=== PATIENT | male | born 1960 | race African-American/Black ===

== ENCOUNTER 2020-09-18 10:27 | Emergency (ER) | payer MEDICAID ==
[2020-09-18 10:48] VITALS: BP 137/81
[2020-09-18] MEDS ORDERED: OXYCODONE-ACETAMINOPHEN 5-325 MG TABLET PO ONE (11:36)
--- NOTE | 2020-09-18 11:38 | ER Document Report ---
ED Extremity Problem, Lower - General Chief Complaint: Leg Injury Stated Complaint: FALL/LEG INJURY Time Seen by Provider: 09/18/20 11:34 Primary Care Provider: LINDA GUSMAN DO [ACTIVE STAFF] - Follow up as needed Notes: CHIEF COMPLAINT: Fall with hip and leg pain HPI: 59-year-old male mechanical fall yesterday landing on his right side on the hip. Complains of pain to the right hip and right leg was able to get up and weight-bear afterwards with discomfort. Denies hitting his head. Denies upper extremity injuries. Denies abdominal or flank pain. Is not on blood thinners per the patient. ROS: See HPI - all other systems were reviewed and are otherwise negative Constitutional: no fever Eyes: no drainage, no blurred vision ENT: no runny nose, no sore throat Cardiovascular: no chest pain Resp: no SOB, no cough GI: no vomiting, no diarrhea, no abdominal pain : no dysuria Integumentary: no rash Allergy: no hives Musculoskeletal: Positive extremity pain or swelling Neurological: no numbness/tingling, no weakness MEDICATIONS: I agree with the patient medications as charted by the RN. ALLERGIES: I agree with the allergies as charted by the RN. PAST MEDICAL HISTORY/PAST SURGICAL HISTORY: Reviewed and agree as charted by RN. SOCIAL HISTORY: Reviewed and agree as charted by RN. FAMILY HISTORY: No significant familial comorbid conditions directly related to patient complaint EXAM: Reviewed vital signs as charted by RN. CONSTITUTIONAL: Alert and oriented and responds appropriately to questions. Well-appearing; well-nourished HEAD: Normocephalic; atraumatic EYES: PERRL; Conjunctivae clear, sclerae non-icteric ENT: normal nose; no rhinorrhea; moist mucous membranes; pharynx without lesions noted, no uvula edema or deviation, no tonsillar hypertrophy, phonation normal NECK: Supple without meningismus; non-tender; no cervical lymphadenopathy, no masses CARD: RRR; no murmurs, no clicks, no rubs, no gallops; symmetric distal pulses RESP: Normal chest excursion without splinting or tachypnea; breath sounds clear and equal bilaterally; no wheezes, no rhonchi, no rales, pulse oximetry 97% on room air not hypoxic ABD/GI: Normal bowel sounds; non-distended; soft, non-tender, no rebound, no guarding; no palpable organomegaly or masses. BACK: The back appears normal and is non-tender to palpation, there is no CVA tenderness EXT: Normal ROM in all joints; no visible bruising to the right hip or upper thigh. There is tenderness around the right hip and right femur on palpation. Patient is able to fully straighten the right leg at the knee and hip. There is no swelling and bruising at the right knee. There is no lower extremity injury below the knee. Patient is able to straight leg raise with discomfort in the hip region SKIN: Normal color for age and race; warm; dry; good turgor; no acute lesions noted NEURO: Moves all extremities equally; Motor and sensory function intact PSYCH: The patient's mood and manner are appropriate. Grooming and personal hygiene are appropriate. MDM: 59-year-old male mechanical fall onto the right hip region will obtain x- ray for fracture - Related Data Allergies/Adverse Reactions: No Known Allergies Allergy (Unverified 09/18/20 11:34) Past Medical History - Social History Smoking Status: Unknown if Ever Smoked Family History: Reviewed & Not Pertinent Physical Exam - Vital signs Vitals: Temp Pulse Resp BP Pulse Ox 97.8 F 78 18 137/81 H 98 09/18/20 10:44 09/18/20 10:44 09/18/20 10:44 09/18/20 10:44 09/18/20 10:44 Course - Re-evaluation Re-evalutation: 09/18/20 13:27 Patient imaging studies suggest avascular necrosis no fracture. Will place on pain medication refer to orthopedics follow-up 09/18/20 13:59 Patient and indicate they are from [facility]. They are returning there next week for follow-up - Vital Signs Vital signs: Temp Pulse Resp BP Pulse Ox 97.8 F 78 18 137/81 H 98 09/18/20 10:44 09/18/20 10:44 09/18/20 10:44 09/18/20 10:44 09/18/20 10:44 - Laboratory Results Critical Laboratory Results Reviewed: No Critical Results - Radiology Results Critical Radiology Results Reviewed: No Critical Results Discharge - Discharge Clinical Impression: Hip pain, right, Avascular necrosis Fall Qualifiers: Encounter type: initial encounter Qualified Code(s): W19.XXXA - Unspecified fall, initial encounter Condition: Stable Disposition: HOME, SELF-CARE Additional Instructions: Your x-ray and CT imaging today did not show evidence of a fracture in the hip. Use the crutches to help with weightbearing. Pain medication as prescribed no d riving if taking narcotics for pain. Follow-up with your orthopedic physicians in [place] when you return home for reevaluation Prescriptions: Oxycodone HCl/Acetaminophen [Percocet 5-325 mg Tablet] 1 tab PO Q4H PRN #15 tab PRN Reason: Diclofenac Sodium [Voltaren 50 Mg Tablet.] 50 mg PO BID #20 tablet. Referrals: LINDA GUSMAN DO [ACTIVE STAFF] - Follow up as needed
--- NOTE | 2020-09-18 12:07 | RADIOLOGY REPORT (SQ) ---
EXAM DESCRIPTION: FEMUR RIGHT IMAGES COMPLETED DATE/TIME: 09/18/2020 11:56 am REASON FOR STUDY: fall COMPARISON: None. NUMBER OF VIEWS: Two views. TECHNIQUE: Two radiographic images acquired of the right femur to include hip and knee in at least o ne projection. LIMITATIONS: None. FINDINGS: MINERALIZATION: Normal. BONES: No acute fracture. Marked degenerative changes in the hip. SOFT TISSUES: No obvious swelling or foreign body. OTHER: No other significant finding. IMPRESSION: MARKED DEGENERATIVE CHANGES IN THE RIGHT HIP. OTHERWISE NEGATIVE STUDY OF THE RIGHT FEM UR. NO RADIOGRAPHIC EVIDENCE OF ACUTE INJURY. TECHNICAL DOCUMENTATION: JOB ID: [id number] 2010 [employer]- All Rights Reserved Reading location - IP/workstation name: [email or web address]
--- NOTE | 2020-09-18 12:08 | RADIOLOGY REPORT (SQ) ---
EXAM DESCRIPTION: HIP RIGHT AP/LATERAL IMAGES COMPLETED DATE/TIME: 09/18/2020 11:56 am REASON FOR STUDY: fall COMPARISON: None. NUMBER OF VIEWS: Two views. TECHNIQUE: AP pelvis and additional frog legview of the right hip. LIMITATIONS: None. FINDINGS: MINERALIZATION: Normal. RIGHT HIP: No fracture or dislocation. Marked degenerative changes with sclerosis, cortical irregula rity, and subchondral cysts. LEFT HIP: No fracture or dislocation. Marked degenerative changes with sclerosis, cortical irregular ity, and subchondral cysts. Limited views. PUBIS AND ISCHIUM: No fracture. PELVIS: No fracture. SACRUM: No fracture or dislocation. No worrisome bone lesions. LOWER LUMBAR SPINE: No fracture or dislocation. No worrisome bone lesions. No significant disc disea se. SOFT TISSUES: No findings. OTHER: No other significant finding. IMPRESSION: MARKED DEGENERATIVE CHANGES OF BOTH HIPS. SUSPECT AVASCULAR NECROSIS OF THE FEMORAL HEA DS. NO RADIOGRAPHIC EVIDENCE OF ACUTE INJURY. TECHNICAL DOCUMENTATION: JOB ID: [id number] 2010 [employer]- All Rights Reserved Reading location - IP/workstation name: [email or web address]
--- NOTE | 2020-09-18 13:20 | RADIOLOGY REPORT (SQ) ---
EXAM DESCRIPTION: CT RT LOWER EXTREMITY WITHOUT IMAGES COMPLETED DATE/TIME: 09/18/2020 1:08 pm REASON FOR STUDY: eval for right hip fracture COMPARISON: None. TECHNIQUE: CT scan of the right hip performed without intravenous or oral contrast. Images reviewed with soft tissue and bone windows. Reconstructed coronal and sagittal MPR images reviewed. All sriram ges stored on PACS. All CT scanners at this facility use dose modulation, iterative reconstruction, and/or weight based d osing when appropriate to reduce radiation dose to as low as reasonably achievable (ALARA). [facility]: Dose Right [facility]: CareDose [facility]: Dose Right [facility]: Teradose 4D [facility]: [employer] RADIATION DOSE: CT Rad equipment meets quality standard of care and radiation dose reduction techniq ues were employed. CTDIvol: 4.1 mGy. DLP: 118 mGy-cm. mGy. LIMITATIONS: None. FINDINGS: PELVIC BONES: No acute fracture. No worrisome bone lesions. VISUALIZED SPINE: No acute findings. SYMPTOMATIC HIP: There are cortical infractions involving the right femoral head. There is irregular mineralization in the femoral head. OPPOSITE HIP: Not included. PELVIC SOFT TISSUES: No significant findings. EXTRAPELVIC SOFT TISSUES: No significant findings. OTHER: No other significant finding. IMPRESSION: There are cortical infractions in the right femoral head suggesting avascular necrosis. TECHNICAL DOCUMENTATION: JOB ID: [id number] Quality ID # [id number]: Final reports with documentation of one or more dose reduction techniques (e.g., Au tomated exposure control, adjustment of the mA and/or kV according to patient size, use of iterative reconstruction technique) 2010 [employer]- All Rights Reserved Reading location - IP/workstation name: [email or web address]
[2020-09-18] MEDS ORDERED: KETOROLAC TROMETHAMINE 60 MG/2 ML SDV IM ONE (13:40)
== END 2020-09-18 14:14 | disposition home or self-care (01) ==
LOC: ER 10:27
DX: M87.051 Idiopathic aseptic necrosis of right femur (principal); M25.551 Pain in right hip; M79.604 Pain in right leg; W19.XXXA Unspecified fall, initial encounter
CPT/HCPCS: 99285; 96372; 73552; 73502; 73700; J1885